=== PATIENT | female | born 1990 | race Caucasian/White ===

== ENCOUNTER 2016-04-09 02:54 | Emergency (ER) | payer OTHER ==
[~2016-04-09] VITALS: Ht 157.5 cm; Wt 68.2 kg
[~2016-04-09 02:54] MED LIST: CITA10TA9 PO; DOCU-41 PO; IBUP-1827 PO; IBUP800T28 PO; OXYC1TAB24 PO; PREN1TAB87 PO
[2016-04-09 02:57] VITALS: BP 122/79; PULSE 120; RESP 18; O2SAT 99
--- NOTE | 2016-04-09 03:03 | ED.REPORT ---
HPI-Psychiatric Illness Date of Service Apr 09, 2016 ED Provider: Bakari Vail MD The patient is a 25 year old female with history of depression who was brought to the ED involuntarily by [facility] for suicidal ideation. The patient reports that she had been drinking earlier tonight and presents to the ED intoxicated. Police report that she had been in an argument with her significant other and threatened to kill herself. She states that she does not typically consume alcohol. Upon arrival to the ED, she denies suicidal ideation and any other symptoms at this time. She has a history of drug abuse but denies any recent use or problems. Nursing Notes Stated Complaint: SUICIDAL Chief Complaint: Psychiatric Complaint Nursing Notes Reviewed: Yes Allergies: Coded Allergies: No Known Allergies (Verified , 04/09/16) Scheduled Citalopram (Citalopram) 10 Mg Tablet 10 MG PO DAILY Docusate Sodium (Colace) 100 Mg Capsule 100 MG PO BID Vit W-Ca,Fe,FA(<1 mg) ( Vitamins) 1 Each Tablet 1 EACH PO DAILY Scheduled PRN Ibuprofen (Ibuprofen) 800 Mg Tablet 600 MG PO Q6H PRN PRN For Pain Ibuprofen (Ibuprofen) 600 Mg Tablet 600 MG PO QID PRN PRN For Pain oxyCODONE-Acetaminophen 5-325 mg (oxyCODONE-Acetaminophen 5-325 mg) 1 Each Tablet 1 TAB PO Q4H PRN PRN For Pain General Time Seen by MD: 03:01 Chief Complaint Depressed, Suicidal ideation Hx Obtained From: Patient Arrived By: Police Onset Occurred: 1 - 4 hours ago Symptom Duration: Duration unknown Progression Since Onset: Resolved Severity: Current: No pain currently Recent Healthcare: No recent doctor visit, No recent hospitalization Similar Sx Previous: No Risk-Psychiatric Illness Suicide Risk Stratification Suicide Risk Factors - Adult: : Alcohol use: Substance abuse (history) RF Statements: Risk factors reviewed Past Medical History Past Medical History Notes: Healthy otherwise. Past Medical History GI bleed depression anxiety Past Surgical History Reports: Smoking History Current Every Day Smoker Social History Alcohol Use: Denies alcohol use Drug Use: In recovery Other Social History: Lives with children, Local resident Occupation [employer] Ambulatory Status Independent Review of Systems Unable to Obtain ROS Patient condition, Intoxicated Physical Exam Initial Vital Signs Vital Signs (First) Date Time Temp Pulse Resp B/P Pulse Ox O2 Delivery O2 Flow Rate FiO2 04/09/16 02:57 36.9 120 18 122/79 99 Room Air Initial VS: Reviewed, Vital signs abnormal Head / Eyes: Atraumatic, Normocephalic, PERRL ENT: Mucous membranes moist, Conjunctiva normal, No scleral icterus Neck: Supple, Non-tender, Full range of motion Respiratory: Breath sounds normal, Clear to auscultation, No respiratory distress Cardiovascular: Regular rate & rhythm, Heart sounds normal, Intact distal pulses Abdomen / GI: Soft, Non-tender, No guarding, No rebound, No distention Back: No CVA tenderness Extremities: Vascular intact, Neuro intact, No swelling, No tenderness Skin: Warm, Dry, No cyanosis General/Constitutional: Awake, Cooperative Appearance / Presentation: Positive: Intoxicated Smells of alcohol, cooperative and calm. Smiles and jokes frequently. Neurologic: Oriented X3 Slurred speech secondary to intoxication Psychiatric: Not suicidal, Not homicidal, No hallucinations Intoxicated, denies suicidal ideation at this time Re-Eval/Medical Decision Med Decision/Clinical Course Intoxicated 25-year-old who got in an argument with her significant other and made suicide threats. She now has calmed considerably and denies overt suicidal ideation or plan. Her alcohol level was 200, test negative, and rapid urine drug screen was negative. Her care is being turned over change of shift to Dr. Kirby pending sobering. Source of Hx: Old records Re-Evaluation/Progress : Time of Eval: 06:00 Re-Evaluation/Progress Note: Care transferred to Dr. Kirby at change of shift Discharge & Departure Shift Change Sign-Out Patient Care Transferred: Yes Discussed Complaint(s): Yes Response to Therapy: Improved Impression: Primary Impression: Alcohol intoxication Complication of substance-induced condition: uncomplicated Qualified Code: F10.120 - Alcohol abuse with intoxication, uncomplicated Additional Impression: Suicidal ideation Discharge Condition All VS Reviewed: Yes Condition: Stable Referrals: Dmitriy Chavez MD (PCP) Care Transferred to: Dr. Kirby Care Transferred at: 06:00 Mary Attestation Portions of this note were transcribed by Man Bartlett. I, Dr. Vail, personally performed the history, physical exam, and medical decision-making; I reviewed and confirmed the accuracy of the information in the transcribed note. Signed by: Mary Castellano, 04/09/16 06:00 copies to: Dmitriy Chavez MD, Howard L MD Apr 09, 2016 03:03 MAN BARTLETT Apr 09, 2016 03:44
[2016-04-09 06:13] VITALS: BP 107/58; PULSE 104; RESP 16; O2SAT 96
[2016-04-09 10:30] VITALS: BP 116/75; PULSE 96; O2SAT 97
== END 2016-04-09 10:39 ==
LOC: SED 02:54
DX: F43.0 Acute stress reaction (principal); F10.120 Alcohol abuse with intoxication, uncomplicated; R45.851 Suicidal ideations; F17.200 Nicotine dependence, unspecified, uncomplicated

== ENCOUNTER 2016-05-01 04:13 | Emergency (ER) | payer OTHER ==
[2016-05-01 04:18] VITALS: BP 122/71; PULSE 110; RESP 16; O2SAT 97
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
[2016-05-01 04:42] LABS: BASOPHILS % (AUTO) 0.1 % (0-3); EOSINOPHILS % (AUTO) 0 % (0-5); MONOCYTES % (AUTO) 6.5 % (4-12); Mean Corpuscular Hemoglobin 28.5 pg (27.0-35.0); Mean Corpuscular Volume 85.2 fL (81-100); Platelet Count 253 bil/L (150-400)
[2016-05-01] MEDS ORDERED: TdaP Vaccine 0.5 mL Inj IM ONE (06:40)
[2016-05-01 08:51] VITALS: BP 120/48; PULSE 94; RESP 16; O2SAT 97
[2016-05-01 10:08] VITALS: BP 113/55; PULSE 98; RESP 16; O2SAT 99
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
== END 2016-05-01 10:09 | disposition home or self-care (01) ==
LOC: SED 04:13
DX: R45.851 Suicidal ideations (principal); F10.120 Alcohol abuse with intoxication, uncomplicated; S51.812A Laceration without foreign body of left forearm, initial encounter; S11.91XA Laceration without foreign body of unspecified part of neck, initial encounter; X78.0XXA Intentional self-harm by sharp glass, initial encounter; Y92.002 Bathroom of unspecified non-institutional (private) residence as the place of occurrence of the external cause; Y93.89 Activity, other specified; Y99.8 Other external cause status; Y90.6 Blood alcohol level of 120-199 mg/100 ml; F17.200 Nicotine dependence, unspecified, uncomplicated; Z91.5 Personal history of self-harm; Z23 Encounter for immunization
CPT/HCPCS: 12032; 12042; 36415; 80053; 81002; 81025; 82075; 84443; 85025; 90471; 90715; 99285; G0480